=== PATIENT | male | born 1955 | race Caucasian/White ===

== ENCOUNTER 2021-04-24 23:19 | Emergency (ER) | payer MEDICARE ==
--- NOTE | 2021-04-25 01:14 | ED Physician Documentation ---
History of Present Illness - Stated complaint Stated Complaint: NAUSEA/DIZZY - Chief complaint Chief Complaint: Abd Pain - History obtained from History obtained from: Patient - History of Present Illness Timing: Today Pain level now: 2 Improved by: nothing Worsened by: inspiration (pleuritic) - Additonal information Additional information: patient is visiting [facility]. Patient states that since this morning, he has had shortness of breath, generalized headache, nausea but no vomiting, midline upper chest discomfort. Patient says that he takes lorazepam 2 mg three times per day, but that he forgot his lorazepam back home and thus has not taken a dose since Saturday night. Review of Systems Constitutional: reports: Reviewed and negative Cardiac: reports: Chest pain / pressure. denies: Palpitations, Pedal edema Respiratory: reports: Dyspnea. denies: Cough GI: reports: Nausea. denies: Abdominal Pain, Vomiting Neurologic: reports: Headache. denies: Generalized weakness PD PAST MEDICAL HISTORY - Past Medical History Past Medical History: Yes Psych: Anxiety - Past Surgical History Past Surgical History: Yes Ortho: Shoulder arthroplasty - Present Medications Home Medications: Ambulatory Orders Medication Instructions Recorded Confirmed Lorazepam [Ativan] 2 mg PO TID 04/24/21 04/24/21 LORazepam [Lorazepam] 2 mg PO TID #12 tablet 04/25/21 Ondansetron Odt [Zofran] 4 mg TL Q6H PRN #10 tablet 04/25/21 - Allergies Allergies/Adverse Reactions: Allergies Allergy/AdvReac Type Severity Reaction Status Date / Time No Known Drug Allergies Allergy Verified 04/24/21 23:26 - Social History Does the pt smoke?: No Smoking Status: Former smoker Does the pt drink ETOH?: Yes ETOH Use: Beer Does the pt have substance abuse?: No - Immunizations Immunizations are current?: Yes PD ED PE NORMAL - Vitals Vital signs reviewed: Yes - General General: Alert and oriented X 3, Well developed/nourished, Other (appears mildly anxious) - Neck Neck: Supple, no meningeal sign - Cardiac Cardiac: RRR, No murmur - Respiratory Respiratory: No respiratory distress, Clear bilaterally - Abdomen Abdomen: Soft, Non tender - Derm Derm: Normal color, Warm and dry - Extremities Extremities: No edema - Neuro Neuro: Alert and oriented X 3 Results - Vitals Vitals: Oxygen O2 Source Room air - EKG (time done) No standard instances Rate: Rate (enter#) (71) Rhythm: NSR [place]: LAD Intervals: Normal [place] QRS: Normal Ischemia: Normal ST segments - Labs Labs: Laboratory Tests 04/25/21 04/25/21 04/25/21 01:40 01:40 01:40 WBC 2.9 L RBC 4.12 L Hgb 14.6 Hct 41.5 L MCV 100.7 H MCH 35.4 H MCHC 35.2 RDW 12.6 Plt Count 51 L MPV 9.0 Neut # (Auto) 2.0 Lymph # (Auto) 0.5 L [place] # (Auto) 0.4 Eos # (Auto) 0.0 Baso # (Auto) 0.0 Absolute Nucleated RBC 0.00 Nucleated RBC % 0.0 Manual Slide Review Indicated WBC Morphology NORMAL APPEARANCE Platelet Estimate DECREASED (<130,000) Platelet Morphology NORMAL APPEARANCE RBC Morph Micro Appear NORMAL APPEARANCE Sodium 136 Potassium 3.5 Chloride 102 Carbon Dioxide 23 Anion Gap 11.0 BUN 7 Creatinine 0.7 Estimated GFR (MDRD) 112 Glucose 103 H Calcium 8.2 L Troponin I High Sens 7.1 - Rads (name of study) CT chest angio Radiology: Prelim report reviewed, See rad report PD MEDICAL DECISION MAKING - ED course Complexity details: reviewed results, re-evaluated patient, considered differential, d/w patient ED course: [place] and he [place] his lorazepam. He takes 2 mg three times per day. He says he still has lorazepam back at home. his EKG is unremarkable and he has a normal troponin. A CT chest angio is performed due to his pleuritic chest pain, and this is negative for pulmonary embolism (cannot r/o with PERC due to age). there are concerning findings that would be unrelated to his presenting symptoms. Specifically, he has a low white blood cell count and low platelets, with a borderline hemoglobin/hematocrit. I discussed these with the patient and he says he has been told that he has low platelets in the past. I instructed him to follow up with his primary care provider regarding these results. Furthermore, his CT chest has findings concerning for cirrhosis as well as multiple varices per radiology prelim reading. also noted is 15mm splenic aneurysm. I asked him about alcohol intake, and he says he drinks two or three beers most days but denies heavier intake. I also discuss these results with the patient and instructed him to follow up with his doctor for likely further testing. lastly, I instructed him to follow up with his doctor regarding his chest pain, as further testing might be necessary. A short course of lorazepam is provided. He says he plans to return home by the end of this week, possibly tomorrow. Given the uncertainty as to when he plans to return, I offered to write for a few days of his lorazepam, which he accepts. JANELL form does indicate regular prescriptions for 2mg lorazepam, all from same prescribing physician. Departure - Departure Disposition: Home, Self Care Clinical Impression: Chest pain Qualifiers: Chest pain type: unspecified Qualified Code(s): R07.9 - Chest pain, unspecified Condition: Good Instructions: ED Chest Pain Atypical Unkn Cause Prescriptions: LORazepam [Lorazepam] 2 mg PO TID #12 tablet Ondansetron Odt [Zofran] 4 mg TL Q6H PRN #10 tablet PRN Reason: Nausea / Vomiting Comments: Follow up with your primary care provider by the end of this week. You will lik lina need further testing regarding tonight's findings (low white blood cell count, low platelet count, possible cirrhosis, suspected varices (enlarged veins)). Discharge Date/Time: 04/25/21 05:19
[2021-04-25] MEDS ORDERED: LORazepam 2 MG/ML VIAL IVP STA (01:32)
[2021-04-25] MEDS ORDERED: IOVERSOL 320 100 ML VIAL IVP ONE ×2 (01:46→02:30)
[2021-04-25 01:52] LABS: BASOPHILS % (AUTO) 0.3 %; EOSINOPHILS % (AUTO) 0.3 %; HCT - HEMATOCRIT 41.5 % (42.0-52.0); HGB - HEMOGLOBIN 14.6 g/dL (14.0-18.0); LYMPHOCYTES # (AUTO) 0.5 10^3/uL (1.5-3.5); MEAN CORPUSCULAR HEMOGLOBIN 35.4 pg (27.0-31.0); MEAN CORPUSCULAR HGB CONC 35.2 g/dL (32.0-36.0); MEAN CORPUSCULAR VOLUME 100.7 fL (80.0-94.0); MONOCYTES # (AUTO) 0.4 10^3/uL (0.0-1.0); NEUTROPHILS % (AUTO) 68.1 %; PLT - PLATELET COUNT 51 10^3/uL (130-450); RED BLOOD COUNT 4.12 10^6/uL (4.70-6.10); RED CELL DISTRIBUTION WIDTH 12.6 % (12.0-15.0); WHITE BLOOD COUNT 2.9 x10^3/uL (4.8-10.8)
[2021-04-25 02:08] LABS: CALCIUM 8.2 mg/dL (8.5-10.3); CREATININE 0.7 mg/dL (0.6-1.2); POTASSIUM 3.5 mmol/L (3.5-5.0)
[2021-04-25 02:18] LABS: SLIDE REVIEW? Indicated
[2021-04-25 02:19] LABS: PLATELET ESTIMATE, MANUAL DECREASED (<130,000) (NORMAL); PLATELET MORPHOLOGY NORMAL APPEARANCE (NORMAL); RBC MORPHOLOGY (MULTIPLE) NORMAL APPEARANCE (NORMAL); WBC MORPHOLOGY (MULTIPLE) NORMAL APPEARANCE (NORMAL)
[2021-04-25] MEDS ORDERED: ONDANSETRON ODT 4 MG TABLET TL STA (03:46)
[2021-04-25] MEDS ORDERED: LORazepam 0.5 MG TABLET PO STA (03:46)
[2021-04-25 05:20] VITALS: BP 115/60
--- NOTE | 2021-04-25 08:12 | CT Report ---
PROCEDURE: ANGIO CHEST W/WO INDICATIONS: pleuritic chest pain, dyspnea CONTRAST: IV CONTRAST: Optiray 320 ml: 80 PO CONTRAST: *NO PO CONTRAST TECHNIQUE: After the administration of intravenous contrast, 2 mm thick sections acquired from the pulmonary api nhi to the posterior costophrenic angles. 3-dimensional maximum intensity projection (MIP) coronal a nd sagittal reformats were then acquired through the thorax. For radiation dose reduction, the follow ing was used: automated exposure control, adjustment of mA and/or kV according to patient size. COMPARISON: None. FINDINGS: Image quality: Excellent. Pulmonary arteries: Pulmonary arteries are normal in size, and demonstrate no intraluminal filling d efects to suggest central pulmonary embolism. Lungs and pleura: Lungs are clear. No pleural effusions or pneumothorax. Central and peripheral ai rways are patent. Mediastinum: Heart size is normal, without pericardial effusion. No mediastinal or hilar adenopathy . Thoracic aorta is normal in caliber and enhancement. Esophagus is normal in caliber. Small hiatal hernia. Bones and chest wall: No suspicious bony lesions. Ribs and thoracic spine appear intact throughout. No axillary or supraclavicular adenopathy. There is a 1.2 x 1.5 cm rim-calcified nodule in the lef t thyroid lobe. Gynecomastia. Abdomen: There is a splenic artery aneurysm near the splenic hilum measuring 15 mm. Liver demonstrat es nodular contour suggesting cirrhosis. Spleen is mildly enlarged measuring 13 cm in length. Recann ulized umbilical vein. Varicosities in the left upper quadrant. IMPRESSION: 1. No evidence for pulmonary embolism. 2. A 15 mm splenic artery aneurysm. 3. Cirrhosis. Mild splenomegaly, recannulized umbilical vein and varicosity in the left upper abdomen suggest portal hypertension. 4. A 1.2 x 1.5 cm rim-calcified nodule in the left thyroid lobe. No significant discrepancy with the preliminary interpretation. Reviewed by: Rosales Hernandez MD on 04/25/2021 8:11 AM PDT Approved by: Rosales Hernandez MD on 04/25/2021 8:11 AM PDT Station ID: [id number]
== END 2021-04-25 05:19 | disposition home or self-care (01) ==
LOC: ED 23:19
DX: R07.9 Chest pain, unspecified (principal); D72.819 Decreased white blood cell count, unspecified; D69.6 Thrombocytopenia, unspecified; I72.8 Aneurysm of other specified arteries; Z87.891 Personal history of nicotine dependence
CPT/HCPCS: 36415; 71275; 80048; 84484; 85025; 93005; 96374; 99284; A9270; J2060; Q0162; Q9967